=== PATIENT | male | born 1990 | race African-American/Black ===

== ENCOUNTER 2022-06-03 14:07 | Emergency (ER) | payer OTHER ==
[~2022-06-03] VITALS: Ht 182.9 cm; Wt 97.3 kg
[2022-06-03 14:25] VITALS: BP 139/75
[2022-06-03 14:31] VITALS: BP 131/72
[2022-06-03 15:18] LABS: HEMATOCRIT 37.7 % (39.0-50.0); HEMOGLOBIN 11.9 g/dl (14.0-18.0); IMMATURE GRANULOCYTES 0.4 % (0.0-5.0); MEAN CELL VOLUME 106.2 fL CALC (80.0-100.0); MEAN CORPUSCULAR HGB 33.5 pG CALC (26.0-32.0); MEAN CORPUSCULAR HGB CONC 31.6 g/dL CAL (32.0-36.0); NEUT# 2.69 thou/uL (1.82-7.42); RED BLOOD COUNT 3.55 mill/uL (4.70-6.10); RED CELL DISTRI WIDTH 11.7 % (11.5-15.5)
[2022-06-03 15:37] LABS: ALBUMIN 4.1 g/dL (3.2-5.0); ALKALINE PHOSPHATASE 80 u/l (38-126); ANION GAP 10 (6-22 (CALC)); BILIRUBIN, TOTAL 0.8 mg/dL (0.0-1.4); BUN 15 mg/dL (9-20); BUN/CREATININE RATIO 16 (12-20 (CALC)); CARBON DIOXIDE 26 mmol/l (22-30); CHLORIDE 105 mmol/l (95-108); CREATININE 0.9 mg/dL (0.7-1.3); GFR FOR AFR.AMER. > 60 ML/MIN (>=60 (CALC)); GFR OTHER RACES > 60 ML/MIN (>=60 (CALC)); POTASSIUM 4.2 mmol/l (3.5-5.1); SGOT/AST 66 u/l (17-59); SODIUM 137 mmol/l (137-146); TOTAL PROTEIN 7.5 g/dL (6.3-8.2)
[2022-06-03 15:52] VITALS: BP 102/61
[2022-06-03] MEDS ORDERED: NAPROXEN500 MG PO (15:53)
[2022-06-03 15:59] VITALS: BP 102/61
== END 2022-06-03 16:10 | disposition home or self-care (01) | DRG 556 ==
LOC: ED 14:07
PROVIDERS: Nurse Practitioner
DX: M25.562 Pain in left knee (principal); M25.561 Pain in right knee; F32.A Depression, unspecified